=== PATIENT | female | born 1990 | race Caucasian/White ===

== ENCOUNTER 2017-04-28 17:30 | Emergency (ER) | payer SELFPAY ==
[2017-04-28 17:42] VITALS: BP 145/95
[2017-04-28 20:46] LABS: Hematocrit 47 % (35-47); Hemoglobin 16.1 g/dl (12.0-16.0); Mean Corpuscular HGB Conc 34 g/dl (31-36); Mean Corpuscular Hemoglobin 31 pg (27-31); Mean Corpuscular Volume 91 fL (80-97); Mean Platelet Volume 8 um3 (7.4-10.4); Red Blood Count 5.21 10^6/ul (4.0-5.4); Red Cell Distribution Width 13 % (10.5-15); White Blood Count 7.1 10^3/ul (3.5-10.8)
[2017-04-28 21:01] LABS: ALT 8 U/L (7-52); AST 12 U/L (13-39); Albumin 4.5 g/dL (3.2-5.2); Alkaline Phosphatase 34 U/L (34-104); Anion Gap 6 mmol/L (2-11); BUN/Creatinine Ratio 15.6 (8-20); Blood Urea Nitrogen 12 mg/dL (6-24); CO2 Carbon Dioxide 30 mmol/L (22-32); Calcium 9.6 mg/dL (8.6-10.3); Chloride 100 mmol/L (101-111); EGFR African American 115.6 (>60); EGFR Non-African American 89.9 (>60); Globulin 2.9 g/dL (2-4); Glucose 116 mg/dL (70-100); Sodium 136 mmol/L (133-145); Total Protein 7.4 g/dL (6.4-8.9)
--- NOTE | 2017-04-28 22:14 | ED ---
Ewelina Bowers Thomas, scribed for Richi Palmer MD on 04/28/17 at 2056 . GI/ HPI - HPI Summary HPI Summary: The patient is a 26 y/o F who presents with vaginal bleeding that began today. When asked about the volume of the bleeding, she responds that she only notices the bleeding when she wipes with toilet paper after urination. The patient says that the color of the bleeding is red and brown. She also c/o a discharge that is mucous in quality. She had a positive urine home test performed two days ago. However, yesterday she had a negative urine test at [facility] and again a negative home urine test this AM. She has not yet had a serum test. She is on the Nuva Ring and was prompted to take a test when she began to having nausea in the morning multiple days in a row. She denies abd cramping. She is accompanied by a male. - History of Current Complaint Chief Complaint: EDVaginalBleeding Time Seen by Provider: 04/28/17 20:13 Stated Complaint: PREG/SPOTTING Hx Obtained From: Patient Onset/Duration: Started Days Ago - onset of bleeding yesterday, Still Present Timing: Constant Severity: Mild Vaginal Bleeding Description: Brownish-Red Pain Intensity: 3 Associated Signs and Symptoms: Positive: Nausea - in the AM Additional Signs & Symptoms: Positive: Vaginal Bleeding - brown-red bleeding, Vaginal Discharge - described as mucous Aggravating Factor(s): Nothing Alleviating Factor(s): Nothing - Allergy/Home Medications Allergies/Adverse Reactions: Allergies Allergy/AdvReac Type Severity Reaction Status Date / Time No Known Allergies Allergy Verified 09/30/15 18:05 PMH/Surg Hx/FS Hx/Imm Hx Previously Healthy: Yes Endocrine/Hematology History: Denies: Hx Diabetes Cardiovascular History: Denies: Hx Hypertension - Surgical History Surgery Procedure, Year, and Place: Lump removal in breast. Infectious Disease History: No Infectious Disease History: Denies: Traveled Outside the [place] in Last 30 Days - Family History Known Family History: Negative: Hypertension, Diabetes - Social History Alcohol Use: Rare Hx Substance Use: No Substance Use Type: Reports: None Hx Tobacco Use: Yes Smoking Status (MU): Current Every Day Smoker Type: Cigarettes Have You Smoked in the Last Year: Yes Review of Systems Negative: Fever Positive: Nausea - in the AM. Negative: Abdominal Pain Positive: discharge, other - Vaginal bleeding All Other Systems Reviewed And Are Negative: Yes Physical Exam Triage Information Reviewed: Yes Vital Signs On Initial Exam: Initial Vitals Temp Pulse Resp BP Pulse Ox 98.5 F 112 20 145/95 99 04/28/17 17:38 04/28/17 17:38 04/28/17 17:38 04/28/17 17:38 04/28/17 17:38 Vital Signs Reviewed: Yes Appearance: Positive: Well-Appearing, No Pain Distress Skin: Positive: Warm, Skin Color Reflects Adequate Perfusion, Dry Head/Face: Positive: Normal Head/Face Inspection Eyes: Positive: Normal ENT: Positive: Normal ENT inspection Neck: Positive: Supple, Nontender Respiratory/Lung Sounds: Positive: Clear to Auscultation, Breath Sounds Present Cardiovascular: Positive: RRR Abdomen Description: Positive: Nontender, Soft Bowel Sounds: Positive: Present Musculoskeletal: Positive: Normal Neurological: Positive: Normal Psychiatric: Positive: Normal, Affect/Mood Appropriate - Crowder Coma Scale Coma Scale Total: 15 Diagnostics - Vital Signs Vital Signs Temp Pulse Resp BP Pulse Ox 04/28/17 17:38 98.5 F 112 20 145/95 99 - Laboratory Lab Results: Lab Results 04/28/17 Range/Units 20:37 WBC 7.1 (3.5-10.8) 10^3/ul RBC 5.21 (4.0-5.4) 10^6/ul Hgb 16.1 H (12.0-16.0) g/dl Hct 47 (35-47) % MCV 91 (80-97) fL MCH 31 (27-31) pg MCHC 34 (31-36) g/dl RDW 13 (10.5-15) % Plt Count 199 (150-450) 10^3/ul MPV 8 (7.4-10.4) um3 Neut % (Auto) 55.4 (38-83) % Lymph % (Auto) 32.8 (25-47) % [place] % (Auto) 7.9 (1-9) % Eos % (Auto) 2.9 (0-6) % Baso % (Auto) 1.0 (0-2) % Absolute Neuts (auto) 3.9 (1.5-7.7) 10^3/ul Absolute Lymphs (auto) 2.3 (1.0-4.8) 10^3/ul Absolute Monos (auto) 0.6 (0-0.8) 10^3/ul Absolute Eos (auto) 0.2 (0-0.6) 10^3/ul Absolute Basos (auto) 0.1 (0-0.2) 10^3/ul Absolute Nucleated RBC 0.01 10^3/ul Nucleated RBC % 0.1 Result Diagrams: 04/28/17 20:37 04/28/17 20:37 Lab Statement: Any lab studies that have been ordered have been reviewed, and results considered in the medical decision making process. GIGU Course/Dx - Course Course Of Treatment: Her serum test was negative and she will be D/C' d to F/U. - Diagnoses Provider Diagnoses: Vaginal bleeding Discharge - Discharge Plan Condition: Stable Disposition: HOME Referrals: [facility]IAN REFERRAL [Outside] - 3 Days Additional Instructions: Use the [facility] Physician Referral Service to find a primary care provider and make an appointment. Return to the emergency department for any new or worsening symptoms. The documentation as recorded by the Ewelina steele Thomas accurately reflects the service I personally performed and the decisions made by Spencer santos Richard L, MD.
== END 2017-04-28 22:05 | disposition home or self-care (01) ==
LOC: ED 17:30
DX: N93.9 Abnormal uterine and vaginal bleeding, unspecified (principal); F17.210 Nicotine dependence, cigarettes, uncomplicated
CPT/HCPCS: 36415; 80053; 84702; 85025; 99282

== ENCOUNTER 2018-02-20 14:43 | Emergency (ER) | payer SELFPAY ==
--- NOTE | 2018-02-20 17:01 | ED ---
Lower Extremity - HPI Summary HPI Summary: Patient is a 19-year-old female presenting to the ED with chief complaint of right lateral foot injury from stepping in a hole while playing volleyball last evening. She remains ambulatory, but with mild amount of pain. Pain is discretely located over the lateral right foot with radiation to the dorsum of the foot without radiation to the ankle. Denies any erythema or ecchymosis. - History of Current Complaint Chief Complaint: EDExtremityLower Stated Complaint: RT FOOT INJURY Time Seen by Provider: 02/20/18 15:11 Hx Obtained From: Patient Mechanism Of Injury: Twisted Onset of Pain: Hours Onset/Duration: Hours Severity Initially: Moderate Severity Currently: Mild Pain Intensity: 8 Pain Scale Used: 0-10 Numeric Timing: Constant Location: Is Discrete @ - right lateral foot Associated Signs And Symptoms: Negative: Swelling, Redness, Bruising Aggravating Factor(s): Standing, Ambulation Alleviating Factor(s): Rest Able to Bear Weight: Yes - Risk Factors Gout Risk Factors: Negative DVT Risk Factors: Negative Septic Arthritis Risk Factor: Negative - Allergies/Home Medications Allergies/Adverse Reactions: Allergies Allergy/AdvReac Type Severity Reaction Status Date / Time No Known Allergies Allergy Verified 02/20/18 14:48 Home Medications: Home Medications Ibuprofen 400 mg PO DAILY PRN 02/20/18 [History Confirmed 02/20/18] PMH/Surg Hx/FS Hx/Imm Hx Previously Healthy: Yes Endocrine/Hematology History: Denies: Hx Diabetes Cardiovascular History: Denies: Hx Hypertension - Surgical History Surgery Procedure, Year, and Place: Lump removal in breast. - Immunization History Hx Pertussis Vaccination: No Immunizations Up to Date: Yes Infectious Disease History: No Infectious Disease History: Denies: Traveled Outside the [place] in Last 30 Days - Family History Known Family History: Positive: None Negative: Hypertension, Diabetes - Social History Occupation: Employed Part-time Lives: With Family Alcohol Use: Occasionally Hx Substance Use: No Substance Use Type: Reports: None Hx Tobacco Use: Yes Smoking Status (MU): Heavy Every Day Tobacco Smoker Type: Cigarettes Have You Smoked in the Last Year: Yes Review of Systems Negative: Fever, Chills, Fatigue Negative: Palpitations, Chest Pain Negative: Shortness Of Breath, Cough Genitourinary: Negative Positive: no symptoms reported, see HPI Positive: Arthralgia - right lateral foot injury Negative: Rash, Bruising Neurological: Negative Psychological: Normal All Other Systems Reviewed And Are Negative: Yes Physical Exam Triage Information Reviewed: Yes Vital Signs On Initial Exam: Initial Vitals Temp Pulse Resp BP Pulse Ox 97.9 F 119 16 145/87 99 02/20/18 14:46 02/20/18 14:46 02/20/18 14:46 02/20/18 14:46 02/20/18 14:46 Vital Signs Reviewed: Yes Appearance: Positive: Well-Appearing, Well-Nourished Skin: Positive: Warm, Skin Color Reflects Adequate Perfusion Head/Face: Positive: Normal Head/Face Inspection Neck: Positive: Supple, No Lymphadenopathy Respiratory/Lung Sounds: Positive: Clear to Auscultation, Breath Sounds Present Cardiovascular: Positive: RRR, Pulses are Symmetrical in both Upper and Lower Extremities Musculoskeletal: Positive: Normal, Strength/ROM Intact Neurological: Positive: Sensory/Motor Intact, Alert, Oriented to Person Place, Time, Speech Normal Psychiatric: Positive: Affect/Mood Appropriate AVPU Assessment: Alert Diagnostics - Vital Signs Vital Signs Temp Pulse Resp BP Pulse Ox 02/20/18 14:46 97.9 F 119 16 145/87 99 - Laboratory Lab Results: Lab Results 02/20/18 Range/Units 15:16 Beta HCG, Quant < 0.60 mIU/mL Lab Statement: Any lab studies that have been ordered have been reviewed, and results considered in the medical decision making process. Lower Extremity Course/Dx - Course Course Of Treatment: Patient is evaluated for right foot injury after stepping in a hole playing volleyball. negative. Right foot x-ray obtained which is negative for any findings. She is most tender over the right fifth proximal metatarsal area. No ecchymosis or swelling is noted. Deformity is noted. She remains ambulatory, but with pain. Area was Jaylon wrapped. She was encouraged ibuprofen. - Diagnoses Differential Diagnosis/HQI/PQRI: Positive: Sprain, Strain Provider Diagnoses: Strain of foot, right Discharge - Sign-Out/Discharge Documenting (check all that apply): Patient Departure - Discharge Plan Condition: Stable Disposition: HOME Patient Education Materials: Foot Sprain (ED) Referrals: No Primary Care Phys,NOPCP [Primary Care Provider] - Additional Instructions: Ibuprofen 600mg three times daily - Billing Disposition and Condition Condition: STABLE Disposition: Home
--- NOTE | 2018-02-20 17:19 | RAD ---
Indication: Right foot pain. 3 views of the right foot demonstrates no fracture. No other bone or joint abnormality is identified. IMPRESSION: No fracture of the right foot is noted.
[2018-02-20 17:41] VITALS: BP 125/83
== END 2018-02-20 17:40 | disposition home or self-care (01) ==
LOC: ED 14:43
DX: S96.911A Strain of unspecified muscle and tendon at ankle and foot level, right foot, initial encounter (principal); W18.42XA Slipping, tripping and stumbling without falling due to stepping into hole or opening, initial encounter; Y93.68 Activity, volleyball (beach) (court); Y92.9 Unspecified place or not applicable; F17.210 Nicotine dependence, cigarettes, uncomplicated
CPT/HCPCS: 36415; 84702; 99282

== ENCOUNTER 2018-04-27 08:11 | Emergency (ER) | payer SELFPAY ==
[2018-04-27 08:21] VITALS: BP 133/98
[2018-04-27] MEDS ORDERED: Albuterol 2.5 MG/3 ML NEB.SOL* (0.083%) INH ONE (08:35)
--- NOTE | 2018-04-27 08:58 | RAD ---
HISTORY: cough, for 10 days COMPARISONS: None VIEWS: 4: Frontal dual-energy and lateral views of the chest. FINDINGS: CARDIOMEDIASTINAL SILHOUETTE: The cardiomediastinal silhouette is normal. JEWELS: The jewels are normal. PLEURA: The costophrenic angles are sharp. No pleural abnormalities are noted. LUNG PARENCHYMA: The lungs are clear. ABDOMEN: The upper abdomen is clear. There is no subphrenic gas. BONES AND SOFT TISSUES: No bone or soft tissue abnormalities are noted. OTHER: None. IMPRESSION: NO ACTIVE CARDIOPULMONARY DISEASE.
--- NOTE | 2018-04-27 09:01 | ED ---
Headache - HPI Summary HPI Summary: 9 days of symptoms of loss of sense of taste and smell. no fever or chills noted. some wheezing. hx. of asthma as a child. smokeis 1 ppd - History Of Current Complaint Chief Complaint: UCRespiratory Stated Complaint: COUGH,HEADACHE Time Seen by Provider: 04/27/18 08:35 Hx Obtained From: Patient Hx Last Menstrual Period: 03/27/18 Onset/Duration: Gradual Onset, Started days ago Initially Headache Was: Moderate Currently Pain Is: Moderate Timing: Constant Character: Pressure Location of Headache: Frontal Aggravating Factor: Position Change Allevating Factors: Nothing Associated Signs And Symptoms: Sinus Pressure - Allergies/Home Medications Allergies/Adverse Reactions: Allergies Allergy/AdvReac Type Severity Reaction Status Date / Time No Known Allergies Allergy Verified 04/27/18 08:21 PMH/Surg Hx/FS Hx/Imm Hx Previously Healthy: Yes Endocrine/Hematology History: Denies: Hx Diabetes Cardiovascular History: Denies: Hx Hypertension Respiratory History: Reports: Hx Asthma - Surgical History Surgery Procedure, Year, and Place: Lump removal in breast. Infectious Disease History: No Infectious Disease History: Denies: Traveled Outside the [place] in Last 30 Days - Family History Known Family History: Positive: None Negative: Hypertension, Diabetes - Social History Alcohol Use: Occasionally Hx Substance Use: No Substance Use Type: Reports: None Hx Tobacco Use: Yes Smoking Status (MU): Heavy Every Day Tobacco Smoker Type: Cigarettes Have You Smoked in the Last Year: Yes Review of Systems Constitutional: Negative Eyes: Negative Positive: Nasal Discharge Cardiovascular: Negative Respiratory: Other Positive: Cough Gastrointestinal: Negative Genitourinary: Negative Musculoskeletal: Negative All Other Systems Reviewed And Are Negative: Yes Physical Exam Triage Information Reviewed: Yes Vital Signs On Initial Exam: Initial Vitals Temp Pulse Resp BP Pulse Ox 36.6 C 100 20 133/98 100 04/27/18 08:18 04/27/18 08:18 04/27/18 08:18 04/27/18 08:18 04/27/18 08:18 Vital Signs Reviewed: Yes Appearance: Positive: Ill-Appearing Skin: Positive: Warm, Dry Head/Face: Positive: Normal Head/Face Inspection Eyes: Positive: Normal ENT: Positive: Other - maxillary sinus tenderness Neck: Positive: Supple Respiratory/Lung Sounds: Positive: Wheezes - expiratory wheezes noted occasionally, Other Cardiovascular: Positive: Normal Abdomen Description: Positive: Nontender Diagnostics - Vital Signs Vital Signs Temp Pulse Resp BP Pulse Ox 04/27/18 08:18 36.6 C 100 20 133/98 100 - Laboratory Lab Statement: Any lab studies that have been ordered have been reviewed, and results considered in the medical decision making process. Headache Course/Dx - Diagnoses Provider Diagnoses: Sinusitis, Asthma Discharge - Sign-Out/Discharge Documenting (check all that apply): Patient Departure All imaging exams completed and their final reports reviewed: Yes - Discharge Plan Condition: Good Disposition: HOME Prescriptions: Albuterol HFA INHALER* [Ventolin HFA Inhaler*] 2 puff INH Q6H PRN #1 mdi PRN Reason: Cough Amoxicillin PO (*) [Amoxicillin 875 MG (*)] 875 mg PO BID #14 tab Patient Education Materials: Sinusitis (ED) Referrals: No Primary Care Phys,NOPCP [Primary Care Provider] - - Billing Disposition and Condition Condition: GOOD Disposition: Home
== END 2018-04-27 10:00 | disposition home or self-care (01) ==
LOC: UCEAST 08:11
DX: J32.9 Chronic sinusitis, unspecified (principal); J45.901 Unspecified asthma with (acute) exacerbation; F17.210 Nicotine dependence, cigarettes, uncomplicated
CPT/HCPCS: 71046; 99212; G0463

== ENCOUNTER 2018-09-16 09:45 | Emergency (ER) | payer SELFPAY ==
[2018-09-16 10:12] VITALS: BP 136/96
--- NOTE | 2018-09-16 10:17 | UC ---
Throat Pain/Nasal Rigo HPI - HPI Summary HPI Summary: 27 yo female presents with sore throat since last night. This morning noticed her right tonsil was swollen and she saw white spots. She has 2 close contacts that were recently dx'd with strep. She has not taken anything OTC for her symptoms. She is tolerating po well. She is still smoking daily. Denies fever, chills, sinus symptoms, cough, rash, n/v. - History of Current Complaint Chief Complaint: UCRespiratory Stated Complaint: SORE THROAT Time Seen by Provider: 09/16/18 10:16 Hx Obtained From: Patient Hx Last Menstrual Period: 09/12/18 Onset/Duration: Sudden Onset Severity: Mild Pain Intensity: 3 Pain Scale Used: 0-10 Numeric - Allergies/Home Medications Allergies/Adverse Reactions: Allergies Allergy/AdvReac Type Severity Reaction Status Date / Time No Known Allergies Allergy Verified 09/16/18 10:12 PMH/Surg Hx/FS Hx/Imm Hx Respiratory History: Asthma - Surgical History Surgical History: Yes Surgery Procedure, Year, and Place: Lump removal in breast. - Family History Known Family History: Positive: None Negative: Hypertension, Diabetes - Social History Occupation: Employed Full-time Lives: With Family Alcohol Use: Occasionally Substance Use Type: None Smoking Status (MU): Heavy Every Day Tobacco Smoker Type: Cigarettes Have You Smoked in the Last Year: Yes Household Exposure Type: Cigarettes Review of Systems All Other Systems Reviewed And Are Negative: Yes Constitutional: Positive: Negative Skin: Positive: Negative Eyes: Positive: Negative ENT: Positive: Sore Throat Respiratory: Positive: Negative Cardiovascular: Positive: Negative Gastrointestinal: Positive: Negative Neurovascular: Positive: Negative Neurological: Positive: Negative Psychological: Positive: Negative Physical Exam - Summary Physical Exam Summary: GENERAL: NAD. WDWN. No pain distress. SKIN: No rashes, sores, lesions, or open wounds. HEENT: Head: AT/NC Eyes: Conjunctiva clear without inflammation or discharge. Ears: Hearing grossly normal. TMs intact, no bulging, erythema, or edema. Nose: Nasal mucosa pink and moist. NTTP maxillary and frontal sinus. Throat: Posterior oropharynx mild erythema and 2+ tonsillar enlargement. No exudates. Uvula midline. No hoarse voice or muffled voice. NECK: Supple. Right tonsillar LAD TTP. CHEST: CTAB. No r/r/w. No accessory muscle use. Breathing comfortably and in no distress. CV: RRR. Without m/r/g. Pulses intact. Cap refill <2seconds NEURO: Alert. PSYCH: Age appropriate behavior. Triage Information Reviewed: Yes Vital Signs: Initial Vital Signs Temp 98.3 F 09/16/18 10:09 Pulse 100 09/16/18 10:09 Resp 18 09/16/18 10:09 BP 136/96 09/16/18 10:09 Pulse Ox 98 09/16/18 10:09 Laboratory Tests 09/16/18 10:23 Group A Strep Rapid Negative Vital Signs Reviewed: Yes Throat Pain/Nasal Course/Dx - Course Course Of Treatment: POC strep negative. Discussed viral vs bacterial causes and pt requests to be on anbx at this time given her recent strep exposure. - Differential Dx/Diagnosis Provider Diagnosis: Sore throat Discharge - Sign-Out/Discharge Documenting (check all that apply): Patient Departure All imaging exams completed and their final reports reviewed: No Studies - Discharge Plan Condition: Stable Disposition: HOME Prescriptions: Amoxicillin PO (*) [Amoxicillin 500 MG CAP*] 500 mg PO Q12H #14 cap Patient Education Materials: Pharyngitis (ED) Forms: *Work Release Referrals: No Primary Care Phys,NOPCP [Primary Care Provider] - Additional Instructions: If you develop a fever, shortness of breath, chest pain, new or worsening symptoms - please call your PCP or go to the ED. Your blood pressure was high at todays visit. Please see your primary provider within 4 weeks for recheck and re-evaluation. - Billing Disposition and Condition Condition: STABLE Disposition: Home
== END 2018-09-16 10:45 | disposition home or self-care (01) ==
LOC: UCEAST 09:45
DX: J02.9 Acute pharyngitis, unspecified (principal); F17.210 Nicotine dependence, cigarettes, uncomplicated; J45.909 Unspecified asthma, uncomplicated
CPT/HCPCS: 87651; 99212; G0463

== ENCOUNTER 2018-10-18 11:47 | Emergency (ER) | payer SELFPAY ==
[2018-10-18 12:00] VITALS: BP 112/72
--- NOTE | 2018-10-18 12:39 | UC ---
Nausea/Vomiting/Diarrhea HPI - HPI Summary HPI Summary: 27 y/o female presents to the urgent care c/o nausea and vomiting w/ upset stomach for the past 2 days. Pt reports symptoms started w/ upset stomach , body aches, decrease appetite and MCKEON since Wednesday night. - History of Current Complaint Chief Complaint: UCGeneralIllness Stated Complaint: DIARRHEA / VOMITING Time Seen by Provider: 10/18/18 12:37 Hx Obtained From: Patient Hx Last Menstrual Period: 10/10/18 ?: No - periord ended 2 days ago Onset/Duration: Gradual Onset, Lasting Days - 2 days, Still Present Timing: Intermittent Episodes Lasting: - seconds Severity Initially: Mild Severity Currently: Mild Pain Intensity: 1 - up set stomach and body aches Pain Scale Used: 0-10 Numeric Location: Diffuse - upset stomach Character: Dull Aggravating Factor(s): Nothing Alleviating Factor(s): Vomiting - 2 epsiodes this morning, NPO Vomiting Frequency: Daily Nausea/Vomiting Duration: 2-3 days Vomiting Characteristics: Nonbilious Diarrhea Presence: Yes Diarrhea Frequency: Other - only one episode the first day, now resolved Diarrhea Characteristics: Watery - Risk Factors Influenza Risk Factors: Negative Surgical Obstruction Risk Factor(s): Negative - Allergies/Home Medications Allergies/Adverse Reactions: Allergies Allergy/AdvReac Type Severity Reaction Status Date / Time No Known Allergies Allergy Verified 10/18/18 12:00 PMH/Surg Hx/FS Hx/Imm Hx Previously Healthy: Yes Respiratory History: Asthma - Surgical History Surgical History: Yes Surgery Procedure, Year, and Place: Lump removal in breast. - Family History Known Family History: Negative: Hypertension, Diabetes Family History: dyslipidemia - Social History Occupation: Employed Full-time Lives: With Family Alcohol Use: Occasionally Substance Use Type: None Smoking Status (MU): Heavy Every Day Tobacco Smoker Type: Cigarettes Have You Smoked in the Last Year: Yes Household Exposure Type: Cigarettes Review of Systems All Other Systems Reviewed And Are Negative: Yes Constitutional: Positive: Chills, Fatigue, Other - boy aches Skin: Positive: Negative Eyes: Positive: Negative ENT: Positive: Sore Throat, Nasal Discharge - clear, Sinus Congestion Physical Exam - Summary Physical Exam Summary: Vital Signs Reviewed: Yes General:Patient is a well developed and nourished female who is sitting comfortable in the examining table. Patient is not in any acute respiratory distress. Eyes: Positive: Conjunctiva Clear - PERRLA, EOMI, fundi grossly normal ENT: Positive: Normal ENT inspection, Hearing grossly normal, Pharynx normal, TMs normal Neck: Positive: Supple, Nontender, No Lymphadenopathy Respiratory: Positive: Chest non-tender, Lungs clear, Normal breath sounds, No respiratory distress Cardiovascular: Positive: RRR,S1 and S2 present, No Murmur, Pulses Normal, Brisk Capillary Refill Abdomen Description: Positive: Nontender, Flat with no distention. No surface trauma, scars, incisions. hyperactive bowel sounds present in all four quadrants. No tenderness, guarding, rigidity to palpation. No masses palpated, no pulsation in epigastric area. No organomegaly. Negative [place] signs. No periumbilical tenderness. No rebound in the lower quadrants. NT over McBurneys point. Left side suprapubic tenderness with no distension. Good femoral pulses bilaterally. No hernia noted. No CVAT bilaterally Musculoskeletal: Positive: Strength Intact, ROM Intact, No Edema,FROM in all major joints, no edema, no cyanosis or clubbing. Neuro: Alert and oriented x 3. No acute neurological deficits. Speech is normal. Psychological: WNL Skin: Dry and warm Triage Information Reviewed: Yes Vital Signs: Initial Vital Signs Temp 98 F 10/18/18 11:57 Pulse 110 10/18/18 11:57 Resp 20 10/18/18 11:57 BP 112/72 10/18/18 11:57 Pulse Ox 100 10/18/18 11:57 Naus/Vom/Diarrhea Course/Dx - Differential Dx/Diagnosis Differential Diagnoses - Female: Appendicitis, Gerd, Gastroenteritis (Viral), Gastroenteritis (Bacterial), Vomiting, Diarrhea, Gastritis Provider Diagnosis: Nausea and vomiting Condition At Discharge: Stable Discharge - Sign-Out/Discharge Documenting (check all that apply): Patient Departure - D/c home All imaging exams completed and their final reports reviewed: No Studies - Discharge Plan Condition: Stable Disposition: HOME Prescriptions: Ondansetron ODT TAB* [Zofran 4 MG Odt TAB*] 4 mg PO Q8H PRN #9 tab.odt PRN Reason: Vomiting Patient Education Materials: Gastroenteritis (ED), Acute Nausea and Vomiting ( ED) Forms: *Work Release Referrals: [facility]FERR[facility] [Outside] - 2 Days Additional Instructions: 1- Please increase fluid intake w/ Pedialyte or Gatorade. Eat small portions of soft meals, reast, avoid strenuous exercise. 2-Take Zofran PO as directed if nausea and vomiting continues. 3- If you develops fever or abdominal pain w/ recurrent episodes of diarrhea please go to the ER, otherwise f/u with your PCP if diarrhea not resolving in 2- 3 days - Billing Disposition and Condition Condition: STABLE Disposition: Home
[2018-10-18] MEDS ORDERED: Famotidine TAB* 20 MG PO ONE (13:00)
[2018-10-18] MEDS ORDERED: Ondansetron ODT TAB* 4 MG PO ONE (13:00)
[2018-10-18] MEDS ORDERED: Ibuprofen TAB* 600 MG PO ONE (13:00)
[2018-10-18 13:16] LABS: Influenza A Molecular NEGATIVE (Negative); Influenza B Molecular NEGATIVE (Negative)
== END 2018-10-18 13:47 | disposition home or self-care (01) ==
LOC: UCEAST 11:47
DX: R11.2 Nausea with vomiting, unspecified (principal); F17.210 Nicotine dependence, cigarettes, uncomplicated
CPT/HCPCS: 99212; A9270-GY; G0463

== ENCOUNTER 2019-06-10 19:09 | Emergency (ER) | payer OTHER ==
[2019-06-10] MEDS ORDERED: Acetaminophen TAB* 325 MG PO ONE (20:22)
--- NOTE | 2019-06-10 20:32 | ED ---
- HPI Summary HPI Summary: This patient is a 28 year old F presenting to [facility] with a chief complaint of LLQ pain since 15:30. The pain is constant and dull. Pt was lying bed when the pain started. Pt is 10 weeks , and she has her first US on 06/07/19 at OBGYN (Dr. Hinojosa), and incidentally they found 10 cm cysts on left and right ovaries. They referred her to a specialist in [place]. Pt has a heart shaped uterus and her ovaries are behind uterus. She called her OBGYN, and told her to come into ED. Patient reports increased frequency of urination, and increased vaginal discharge. Pt also reports the following symptoms nausea, vomiting, and constipation, and diarrhea. Patient denies fever, chills, SOB, burning while urinating, back pain, and blood in urine. Pt has surgical history of lump in breast removal, Adenoidectomy, and birthmark removed. Pt smokes (it in the process of quitting), does not drink or do drugs. Pt has no FHx. Her last menstrual period was on April 02, 2019. No allergies. A0 - History of Current Complaint Chief Complaint: EDOBProblems Stated Complaint: 10 WEEKS ;SEVERE ABDOMINAL PAIN PER PT Time Seen by Provider: 06/10/19 20:02 Hx Obtained From: Patient Chief Complaint: Pain Onset/Duration: Started Hours Ago Timing: Constant Severity: Mild Current Severity: Mild Pain Intensity: 3 Location of Pain: Left Side Character: Dull Aggravating Factors: Nothing Alleviating Factors: Nothing Associated Signs and Symptoms: Positive: Nausea, Urinary Symptoms, Vaginal Bleeding or Discharge, Vomiting. Negative: Back Pain, Fever - Assessment Hx Now: No - Allergies/Home Medications Allergies/Adverse Reactions: Allergies Allergy/AdvReac Type Severity Reaction Status Date / Time No Known Allergies Allergy Verified 10/18/18 12:00 Home Medications: Home Medications NK [No Home Medications Reported] 06/10/19 [History Confirmed 06/10/19] PMH/Surg Hx/FS Hx/Imm Hx Endocrine/Hematology History: Denies: Hx Diabetes Cardiovascular History: Denies: Hx Hypertension Respiratory History: Reports: Hx Asthma - Surgical History Surgery Procedure, Year, and Place: Lump removal in breast. - Immunization History Date of Tetanus Vaccine: 2018 Date of Influenza Vaccine: fall 2018 Infectious Disease History: No Infectious Disease History: Denies: Traveled Outside the [place] in Last 30 Days - Family History Known Family History: Positive: None Negative: Hypertension, Diabetes Family History: dyslipidemia - Social History Alcohol Use: None Hx Substance Use: No Substance Use Type: Reports: None Hx Tobacco Use: Yes Smoking Status (MU): Heavy Every Day Tobacco Smoker Type: Cigarettes Have You Smoked in the Last Year: Yes - Additional Comments History Additional Comments: Home Medications Medication Instructions Recorded Confirmed Type Ondansetron ODT TAB* [Zofran 4 MG 4 mg PO Q8H PRN #9 tab.odt 10/18/18 Rx Odt TAB*] Review of Systems Negative: Fever, Chills Negative: Shortness Of Breath Positive: Abdominal Pain, Vomiting, Diarrhea, Nausea, Other - Constipation Positive: discharge, frequency. Negative: burning, dysuria, hematuria All Other Systems Reviewed And Are Negative: Yes Physical Exam - Summary Physical Exam Summary: General: Well-developed, Well-nourished female. No acute distress. HEENT: Normocephalic, Atraumatic. Eyes: Conjuctiva normal, PERRL. Ears: TMs within normal limits. Nares: (-) discharge, (-) erythema. Oropharynx: Clear, mucous membranes moist, (-) exudates. Neck: Soft, FROM, (-) lymphadenopathy, (-) thyromegaly, (-) JVD. Cardiovascular: Normal sinus rhythm, (-) murmur. Lungs: Clear to auscultation bilaterally (-) wheezes, (-) rales, (-) rhonchi. Abdomen: Soft, non-tender, non-distended, (-) organomegaly, normal bowel sounds. Back: (-) CVA tenderness Extremities: No edema. Skin: Warm, dry, (-) rash. Neuro: Alert and oriented x3, no focal deficits. Psychiatric: Mood normal, affect normal. - Physical Exam Triage Information Reviewed: Yes Vital Signs On Initial Exam: Initial Vital Signs Temp 98.1 F 06/10/19 19:13 Pulse 116 06/10/19 19:13 Resp 20 06/10/19 19:13 BP 144/107 06/10/19 19:13 Pulse Ox 100 06/10/19 19:13 Vital Signs Reviewed: Yes Procedures - Sedation Patient Received Moderate/Deep Sedation with Procedure: No Diagnostics - Vital Signs Vital Signs Temp Pulse Resp BP Pulse Ox 06/10/19 19:13 98.1 F 116 20 144/107 100 - Laboratory Result Diagrams: 06/10/19 20:28 06/10/19 20:28 Lab Statement: Any lab studies that have been ordered have been reviewed, and results considered in the medical decision making process. - Ultrasound US Ultrasound Interpretation Completed By: Radiologist Summary of Ultrasound Findings: US reveals, per radiologist, IMPRESSION: 1. Single live intrauterine with a gestational age by ultrasound of. 10 weeks 3 days and estimated due date on 01/03/2020. 2. Bilateral ovarian cystic lesions, which likely represent endometriomas that. have increased in size compared to the prior ultrasound on 04/24/2014. 3. No evidence for ovarian torsion. ED physician has reviewed this radiology report. Re-Evaluation - Re-Evaluation First Eval Re-Evaluation Time: 22:50 Comment: I have discussed results with the patient and abdominal pain is resolved. Discussed symptoms that warrant immediate return to ED. Course/Dx - Course Course Of Treatment: 28 year old F presents with LLQ abdominal pain. 10 weeks gestation, she has been told she has cysts on her ovaries for which she needs to see a specialist, appointment in [place] on 06/21, no vaginal discharge, no bleeding, physical exam and workup essentially negative. US demonstrates ovarian cystic lesions consistent with endometriomas. Fetus normal appearing. Pt given Tylenol. Discharged to home. Follow up with OB. - Diagnoses Provider Diagnoses: Abdominal pain during , Tobacco use Discharge ED - Sign-Out/Discharge Documenting (check all that apply): Patient Departure - Discharge - Discharge Plan Condition: Stable Disposition: HOME Patient Education Materials: Abdominal Pain in (ED) Referrals: [facility] [Outside] Additional Instructions: Please follow up with your primary care physician within three days. Please return to ED for any new or worsening symptoms. Take Tylenol as needed. - Billing Disposition and Condition Condition: STABLE Disposition: Home - Attestation Statements Document Initiated by Scribe: Yes Documenting Scribe: Pascale Aldana Provider For Whom Scribe is Documenting (Include Credential): Dr. Rena Amaral MD Scribe Attestation: Pascale Bowers, scribed for Dr. Rena Amaral MD on 06/11/19 at 0603. Scribe Documentation Reviewed: Yes Provider Attestation: The documentation as recorded by the scribe, Pascale Aldana accurately reflects the service I personally performed and the decisions made by me, Dr. Rena Amaral MD Status of Scribe Document: Viewed
[2019-06-10 20:38] LABS: ABS Basophils 0.1 10^3/ul (0-0.2); ABS Eosinophils 0.2 10^3/ul (0-0.6); ABS Lymphocytes 2.6 10^3/ul (1.0-4.8); ABS Monocytes 0.9 10^3/ul (0-0.8); ABS Neutrophils 6.7 10^3/ul (1.5-7.7); Eosinophil % 1.7 %; Hematocrit 42 % (35-47); Hemoglobin 14.4 g/dL (12.0-16.0); Lymphocyte % 25.2 %; Mean Corpuscular HGB Conc 35 g/dL (31-36); Mean Corpuscular Hemoglobin 32 pg (27-31); Mean Corpuscular Volume 91 fL (80-97); Nucleated Red Blood Cells % 0.2; Platelet Count 190 10^3/uL (150-450); Red Blood Count 4.57 10^6 /uL (3.70-4.87); Red Cell Distribution Width 13 % (10-15); White Blood Count 10.5 10^3/uL (3.5-10.8)
[2019-06-10 20:44] LABS: INR 0.91 (0.82-1.09)
[2019-06-10 20:52] LABS: Albumin 4.3 g/dL (3.2-5.2); Calcium 9.3 mg/dL (8.6-10.3); Potassium 3.5 mmol/L (3.5-5.0); Total Bilirubin 0.2 mg/dL (0.2-1.0)
[2019-06-10 20:58] LABS: Albumin/Globulin Ratio 1.7 (1-3); BUN/Creatinine Ratio 16.3 (8-20); EGFR African American 210.1 (>60); EGFR Non-African American 173.6 (>60); Globulin 2.5 g/dL (2-4); Total Protein 6.8 g/dL (6.4-8.9)
[2019-06-10 23:16] VITALS: BP 119/76
== END 2019-06-10 23:15 | disposition home or self-care (01) ==
LOC: ED 19:09
DX: O26.891 Other specified pregnancy related conditions, first trimester (principal); Z3A.10 10 weeks gestation of pregnancy; R11.0 Nausea; R10.32 Left lower quadrant pain; F17.210 Nicotine dependence, cigarettes, uncomplicated; R19.7 Diarrhea, unspecified
CPT/HCPCS: 36415; 76801; 80053; 83605; 84702; 85025; 85610; 99282; A9270-GY

== ENCOUNTER 2019-07-03 20:25 | Emergency (ER) | payer OTHER ==
[2019-07-03 20:30] VITALS: BP 129/80
== END 2019-07-03 21:17 | disposition left against medical advice (07) ==
LOC: ED 20:25
DX: R51 Headache (principal); Z53.21 Procedure and treatment not carried out due to patient leaving prior to being seen by health care provider

== ENCOUNTER 2019-07-17 07:56 | Emergency (ER) | payer OTHER ==
[2019-07-17 08:06] VITALS: BP 124/79
--- NOTE | 2019-07-17 08:55 | UC ---
Throat Pain/Nasal Rigo HPI - HPI Summary HPI Summary: 28-year-old woman comes in with a chief complaint of 3 days of upper respiratory tract infection symptoms. She has rhinorrhea she has sore throat cough chest congestion. She is smoker she's working on quitting. She is 15 weeks. She has seen her [employer] [employer] and she is on multiple vitamins. She's not tried anything [id number] she's not sure of what she can take while she is . - History of Current Complaint Chief Complaint: UCGeneralIllness Stated Complaint: CHEST CONGESTION COUGH VOMITING Time Seen by Provider: 07/17/19 08:07 Hx Last Menstrual Period: 10/10/18 Pain Intensity: 4 - Allergies/Home Medications Allergies/Adverse Reactions: Allergies Allergy/AdvReac Type Severity Reaction Status Date / Time No Known Allergies Allergy Verified 07/17/19 08:07 Home Medications: Home Medications Acetaminophen [Tylenol] 325 mg PO SEE INSTRUCTIONS 07/17/19 [History Confirmed 07/17/19] Vit37/Iron/Folic Acid [Prenata] 1 chw PO SEE INSTRUCTIONS 07/17/19 [ History Confirmed 07/17/19] PMH/Surg Hx/FS Hx/Imm Hx Previously Healthy: Yes - Surgical History Surgical History: Yes Surgery Procedure, Year, and Place: Lump removal in breast. - Family History Known Family History: Positive: None Negative: Hypertension, Diabetes Family History: dyslipidemia - Social History Alcohol Use: None Substance Use Type: None Smoking Status (MU): Heavy Every Day Tobacco Smoker Type: Cigarettes Have You Smoked in the Last Year: Yes Household Exposure Type: Cigarettes Review of Systems All Other Systems Reviewed And Are Negative: Yes Constitutional: Positive: Other - SEE HPI Skin: Positive: Negative Eyes: Positive: Negative ENT: Positive: Sore Throat, Nasal Discharge, Sinus Congestion Respiratory: Positive: Cough Cardiovascular: Positive: Negative Gastrointestinal: Positive: Negative Motor: Positive: Negative Neurovascular: Positive: Negative Musculoskeletal: Positive: Negative Neurological: Positive: Negative Psychological: Positive: Negative Is Patient Immunocompromised?: No Physical Exam Triage Information Reviewed: Yes Appearance: No Pain Distress, Well-Nourished, Ill-Appearing - MILD Vital Signs: Initial Vital Signs Temp 98.5 F 07/17/19 08:02 Pulse 117 07/17/19 08:02 Resp 18 07/17/19 08:02 BP 124/79 07/17/19 08:02 Pulse Ox 99 07/17/19 08:02 Vital Signs Reviewed: Yes Eye Exam: Normal Eyes: Positive: Conjunctiva Clear ENT: Positive: Pharyngeal erythema, Nasal congestion, Nasal drainage, TMs normal Neck: Positive: Supple Respiratory: Positive: Lungs clear, Normal breath sounds, No respiratory distress Cardiovascular: Positive: RRR Musculoskeletal: Positive: Strength Intact, ROM Intact Neurological: Positive: Alert, Muscle Tone Normal Psychological: Positive: Age Appropriate Behavior Skin Exam: Normal Throat Pain/Nasal Course/Dx - Course Course Of Treatment: Discussed viral versus bacterial infections and the role of antibiotics. Rapid strep was negative. At this time we will treat symptomatically and I discussed what the patient could take in . No antibiotics at this time. Patient will get reevaluated if not improving or worse. - Differential Dx/Diagnosis Provider Diagnosis: Upper respiratory infection Discharge ED - Sign-Out/Discharge Documenting (check all that apply): Patient Departure All imaging exams completed and their final reports reviewed: No Studies - Discharge Plan Condition: Stable Disposition: HOME Patient Education Materials: Upper Respiratory Infection (ED) Forms: *Work Release Referrals: [facility] [Outside] Additional Instructions: FOLLOW UP WITH YOUR PRIMARY CARE DOCTOR AND/OR OBGYN IF NOT COMPLETELY IMPROVED. GET REEVALUATED SOONER IF NOT IMPROVED OR WORSE OR ANY QUESTIONS OR CONCERNS. - Billing Disposition and Condition Condition: STABLE Disposition: Home
== END 2019-07-17 09:02 | disposition home or self-care (01) ==
LOC: UCEAST 07:56
DX: J06.9 Acute upper respiratory infection, unspecified (principal); R11.10 Vomiting, unspecified; F17.210 Nicotine dependence, cigarettes, uncomplicated
CPT/HCPCS: 87651; 99211; G0463

== ENCOUNTER 2019-11-19 10:47 | Inpatient (IN) ==
[2019-11-19 11:55] LABS: Urine Appearance Cloudy; Urine Benzodiazepine Screen None Detected (None Detect); Urine Bilirubin Negative (Negative); Urine Blood 3+ (Negative); Urine Color Yellow; Urine Glucose Negative (Negative); Urine Ketones Negative (Negative); Urine Nitrite Negative (Negative); Urine Opiates Screen None Detected (None Detect); Urine Protein Negative (Negative); Urine Specific Gravity 1.003 (1.010-1.030); Urine Urobilinogen Negative (Negative)
[2019-11-19 12:00] LABS: Urine Bacteria 1+ (Absent); Urine Red Blood Cell Trace(0-2/hpf) (Absent); Urine Squamous Epithelial Cell Present (Absent); Urine White Blood Cell 2+(11-20/hpf) (Absent)
[2019-11-19] MEDS ORDERED: Lactated Ringers 1000 ml BAG 1,000 ML IV ONE (12:21)
[2019-11-19] MEDS ORDERED: Betamethasone 6 mg/ml 5 ml VIAL IM SCH (12:30)
[2019-11-19 12:36] LABS: ABS Basophils 0.1 10^3/ul (0-0.2); ABS Eosinophils 0.1 10^3/ul (0-0.6); ABS Lymphocytes 1.8 10^3/ul (1.0-4.8); ABS Monocytes 0.6 10^3/ul (0-0.8); ABS Nucleated RBC 0.2 10^3/ul; Eosinophil % 0.9 %; Hematocrit 38 % (35-47); Hemoglobin 13.3 g/dL (12.0-16.0); Mean Corpuscular HGB Conc 35 g/dL (31-36); Mean Corpuscular Hemoglobin 32 pg (27-31); Mean Corpuscular Volume 91 fL (80-97); Mean Platelet Volume 8.7 fL (7.4-10.4); Nucleated Red Blood Cells % 1.7; Platelet Count 215 10^3/uL (150-450); Red Blood Count 4.23 10^6 /uL (3.70-4.87); Red Cell Distribution Width 13 % (10-15); White Blood Count 11.2 10^3/uL (3.5-10.8)
[2019-11-19 12:53] LABS: ALT 6 U/L (7-52); Albumin 3.8 g/dL (3.2-5.2); Albumin/Globulin Ratio 1.2 (1-3); Alkaline Phosphatase 85 U/L (34-104); BUN/Creatinine Ratio 8.5 (8-20); Blood Urea Nitrogen 4 mg/dL (6-24); CO2 Carbon Dioxide 20 mmol/L (22-32); Calcium 8.8 mg/dL (8.6-10.3); Chloride 106 mmol/L (101-111); EGFR African American 189.6 (>60); EGFR Non-African American 156.7 (>60); Globulin 3.3 g/dL (2-4); Glucose 82 mg/dL (70-100); Sodium 135 mmol/L (135-145); Total Protein 7.1 g/dL (6.4-8.9)
[2019-11-19] MEDS ORDERED: Ampicillin ADVAN 2 GM in NS 0.9% 100 ml BAG 100 ML IVPB SCH (13:00)
[2019-11-19] MEDS ORDERED: Lactated Ringers 1000 ml BAG 1,000 ML IV SCH ×2 (13:00→18:00)
[2019-11-19 13:57] LABS: Anion Gap 9 mmol/L (2-11)
[2019-11-19] MEDS ORDERED: Sodium Citrate/Citric Acid LIQ 15 ML UDC ONE (15:46)
[2019-11-19] MEDS ORDERED: ceFOXitin 2 GM IVPREMIX 2 GM/50 ML BAG ONE (15:46)
[2019-11-19] MEDS ORDERED: ceFOXitin 2 GM IVPREMIX 2 GM/50 ML BAG IVPB ONE (15:53)
[2019-11-19] MEDS ORDERED: Morphine PF AMP (0.5MG/ML) 5 MG/10 ML AMP ONE (15:55)
[2019-11-19] MEDS ORDERED: HYDROcodone/ACETAMIN 5/325 mg TAB PO PRN (16:49)
[2019-11-19] MEDS ORDERED: Ondansetron 4 mg VIAL 2 MG/ML 2 ml VIAL IV PRN (16:49)
[2019-11-19] MEDS ORDERED: Naloxone 0.4 mg VIAL 0.4 mg/ml 1 ml VIAL IV PRN (16:49)
[2019-11-19] MEDS ORDERED: Oxytocin 10 UNITS/ML 1 ML VIAL ONE (17:02)
[2019-11-19] MEDS ORDERED: Witch Hazel PAD JAR TOPICAL PRN (17:26)
[2019-11-19] MEDS: diPHENhydraMINE IV 50 MG/ML 1 ml VIAL (BENADRYL) IV PRN ×2 (17:54→23:55)
[2019-11-20] MEDS: diPHENhydraMINE IV 50 MG/ML 1 ml VIAL (BENADRYL) IV PRN (07:52)
[2019-11-20 08:01] LABS: ABS Lymphocytes 1.7 10^3/ul (1.0-4.8); ABS Monocytes 1.1 10^3/ul (0-0.8); Hematocrit 33 % (35-47); Hemoglobin 11.6 g/dL (12.0-16.0); Lymphocyte % 11.1 %; Mean Corpuscular HGB Conc 35 g/dL (31-36); Mean Corpuscular Hemoglobin 32 pg (27-31); Mean Corpuscular Volume 91 fL (80-97); Platelet Count 207 10^3/uL (150-450); Red Blood Count 3.63 10^6 /uL (3.70-4.87); Red Cell Distribution Width 13 % (10-15); White Blood Count 15.6 10^3/uL (3.5-10.8)
[2019-11-20 08:51] LABS: Potassium Redraw 3.9 mmol/L (3.5-5.0)
[2019-11-22 11:24] VITALS: BP 147/85
== END 2019-11-22 13:00 | disposition home or self-care (01) | DRG 540 ==
LOC: MCHOBOUT 10:47 → MCHOB 12:24
PROVIDERS: ADMIT Obstetrics & Gynecology; ATTEND Obstetrics & Gynecology